=== PATIENT | female | born 1985 | race Caucasian/White ===

== ENCOUNTER 2023-03-12 17:51 | Emergency (ER) | payer BC, SELFPAY ==
[2023-03-12 17:57] VITALS: BP 133/83; PULSE 95; RESP 16; TEMP 36.9; O2SAT 100
--- NOTE | 2023-03-12 18:49 | ED.GENADUL_ITS ---
Discharge Plan Disposition Patient Disposition: Home Condition: Improving Discharge Details Chief Complaint: AnimalBite Clinical Impression: Exposure to bat without known bite Primary Care Provider: None,None ED Provider: Herberth Townsend Discharge Instructions Instructions: Rabies Vaccine (By injection), Rabies Immune Globulin (By injection), Rabies (ED) Additional Instructions: Please return to the emergency department for repeat vaccinations, see vaccination schedule sheet on discharge paperwork. Please return to the emergency department for any worsening Medical Decision Making 37-year-old female presents several days after waking up with a bat in her bedroom. Her partner was able to remove the bat from the room. No apparent bites or scratches. Afebrile nontoxic no acute distress. However given possible exposure to bat patient requires rabies postexposure prophylaxis which includes serial vaccinations as well as a one-time dose of immunoglobulin. Patient amenable to treatment. Given home care instructions and return precautions HPI General Date/Time Provider Initiated Documentation: 03/12/23 18:00 . HPI Narrative: 37-year-old female presents after awaking several days ago with a bat in her bedroom. Does not have any discrete bites or scratches. Her partner removed the bat from the room. General Stated Complaint: AnimalBite FRANNIE: 4 Review of Systems Narrative: Review of Systems Constitutional: negative Eyes: negative ENT: negative Cardiovascular: negative Respiratory: negative Gastrointestinal: negative : negative Musculoskeletal: negative Skin: negative Neurologic: negative Psych: negative PFSH All Active Problems (Updated 03/12/23 @ 19:02 by Herberth Townsend MD) Exposure to bat without known bite (Acute) Social History Smoking risk assessment performed?: No Exam Narrative Exam Narrative: Physical Examination General: alert, awake, cooperative, resting comfortably, no acute distress HEENT: normocephalic, atraumatic Neck: supple, trachea midline; full ROM Chest: normal to inspection Respiratory: normal respiratory effort, speaking in full sentences Skin: no lesions, rashes or trauma appreciated Neuro: AAOx3, normal speech, moving all extremities Psych: Appropriate mood and affect Course Vital Signs Vital signs: Vital Signs Temperature 36.9 C 03/12/23 17:57 Pulse 95 H 03/12/23 17:57 Respiratory Rate 16 03/12/23 17:57 Blood Pressure 133/83 03/12/23 17:57 Pulse Oximetry 100 03/12/23 17:57 Temperature 36.9 C 03/12/23 17:57 Temperature Source Skin 03/12/23 17:57 Pulse 95 H 03/12/23 17:57 Respiratory Rate 16 03/12/23 17:57 Blood Pressure 133/83 03/12/23 17:57 Blood Pressure Position Sitting 03/12/23 17:57 Pulse Oximetry 100 03/12/23 17:57 Oxygen Delivery Method Room Air 03/12/23 17:57 Oxygen Flow Rate 0 03/12/23 17:57 Pain Level 0 03/12/23 17:57
--- NOTE | 2023-03-12 19:17 | NUR.NOTE ---
Nursing Note: info sent to [facility] animal [facility]
[2023-03-12] MEDS: Rabies Immune Globulin 300 UNIT/ML VIAL 1632.94 UNIT IM (19:55)
== END 2023-03-12 20:15 | disposition home or self-care (01) ==
PROVIDERS: Emergency Provider Emergency Medicine
DX: Z20.3 Contact with and (suspected) exposure to rabies (principal)
CPT/HCPCS: 90471; 96372; 99284; 90675; 99282

== ENCOUNTER 2023-03-15 19:22 | Emergency (ER) | payer BC, SELFPAY ==
[2023-03-15 19:28] VITALS: BP 150/84; PULSE 76; RESP 17; TEMP 36.7; O2SAT 98
--- NOTE | 2023-03-15 19:34 | ED.GENADUL_ITS ---
Discharge Plan Disposition Patient Disposition: Home Discharge Details Clinical Impression: Exposure to bat without known bite Primary Care Provider: None,None ED Provider: Hunter Campbell Home Meds and New Rx's Prescriptions: Continued norgestimate-ethinyl estradiol [Sprintec (28)] 0.25-35 mg-mcg Tablet 1 tab PO DAILY cetirizine 5 mg Tablet 10 mg PO PRN PRN Discharge Instructions Additional Instructions: You were seen in the emergency department for your rabies prophylaxis. You are due to have your rabies prophylaxis again in 4 days and then in 11 days. We are trying to have your visit scheduled so that you do not need to be seen in the emergency department. A patient care technician instructor should call you for follow-up. As we discussed if you develop any fevers any confusion or any difficulty swallowing please return to the emergency department. Discharge Data Discharge Date/Time-TO BE ENTERED AT DEPARTURE: 03/15/23 20:50 Medical Decision Making This is an overall well-appearing normothermic and not tachycardic 37-year-old female back in the emergency department for the second in her rabies vaccine series given her exposure to a bat approximately 8 days ago without a known bite. She has had no symptoms of fever nor difficulty swallowing nor hypersali vation to suggest acute rabies. I have asked health varnishing unit operator Amalia to have care management reach out to the patient she does not have a PCP and she will require 2 more doses of intramuscular rabies vaccine. She will be due for dose in 4 days, on 03/19, and in 11 days, on 03/26. Ideally this could be coordinated through either nursing visits or PCP visits as the patient does not require repeat ED assessment in the absence of any new or evolving symptoms. Patient offers no other complaints and was discharged. HPI General Date/Time Provider Initiated Documentation: 03/15/23 19:34 . HPI Narrative: This is a previously healthy 37-year-old female who was in the same room as a bat approximately 8 days ago in the emergency department for the second in her series of rabies vaccines. She has had no symptoms of hypersalivation fevers nor difficulty swallowing. She offers no other complaints. She would not be in the emergency department were it not for her need for rabies vaccination. Related Data Home Medications Medication Instructions Recorded Confirmed cetirizine 5 mg tablet 10 mg PO PRN PRN 03/12/23 03/15/23 norgestimate 0.25 mg-ethinyl 1 tab PO DAILY 03/12/23 03/15/23 estradiol 35 mcg tablet (Sprintec (28)) Allergies Allergy/AdvReac Type Severity Reaction Status Date / Time tomato Allergy Unverified 03/15/23 19:40 General Stated Complaint: AnimalBite FRANNIE: 4 PFS All Active Problems (Updated 03/15/23 @ 19:49 by Hunter Campbell MD) Exposure to bat without known bite (Acute) Social History Smoking/Tobacco Use Status: Never Smoking risk assessment performed?: Yes Alcohol Intake: former Substance use type: does not use Do you feel safe at home: Yes Do you feel safe in your relationship?: Yes Exam Narrative Exam Narrative: General: Well-appearing in no acute distress speaking in complete sentences. Head: Normocephalic, atraumatic. Eye: Extraocular eye movements intact. No conjunctival injection. No scleral icterus. Ear, nose, mouth, throat: Grossly normal inspection. Normal voice, handling secretions normally. Neck: Trachea midline. Cardiovascular: Well-perfused distal extremities. Respiratory: Nonlabored respiration. Gastrointestinal: Nondistended abdomen. Musculoskeletal: No edema. Moving all 4 extremities spontaneously. Skin: Normal for age and race, grossly normal temperature and turgor. No acute rash. Neurologic: Alert and appropriate, no apparent acute deficits. Psychiatric: Mood and manner are appropriate. Grooming and personal hygiene are appropriate. Course Vital Signs Vital signs: Vital Signs Temperature 36.7 C 03/15/23 19:28 Pulse 76 03/15/23 19:28 Respiratory Rate 17 03/15/23 19:28 Blood Pressure 150/84 H 03/15/23 19:28 Pulse Oximetry 98 03/15/23 19:28 Temperature 36.7 C 03/15/23 19:28 Temperature Source Oral 03/15/23 19:28 Pulse 76 03/15/23 19:28 Respiratory Rate 17 03/15/23 19:28 Respiratory Effort Normal 03/15/23 19:31 Blood Pressure 150/84 H 03/15/23 19:28 Blood Pressure Position Sitting 03/15/23 19:28 Pulse Oximetry 98 03/15/23 19:28 Oxygen Delivery Method Room Air 03/15/23 19:28 Oxygen Flow Rate 0 03/15/23 19:28 Pain Level 0 03/15/23 19:28
--- NOTE | 2023-03-16 10:22 | NUR.NOTE ---
Nursing Note: Accessed pt chart to get the date for the next 2 vaccinations for rabies so that the form can be faxed to Infusion Room for these to be done.
== END 2023-03-15 20:50 | disposition home or self-care (01) ==
PROVIDERS: Emergency Provider Emergency Medicine
DX: Z20.3 Contact with and (suspected) exposure to rabies (principal)
CPT/HCPCS: 90471; 99284; 90675; 99283

== ENCOUNTER 2023-03-26 01:39 | Outpatient (RCR) | payer BC, SELFPAY | END 2023-04-09 23:59 | disposition home or self-care (01) | LOC: INF 01:39 | PROVIDERS: Visit Provider Student in an Organized Health Care Education/Training Program | DX: Z20.3 Contact with and (suspected) exposure to rabies (principal) | CPT/HCPCS: 90471; 90675 ==

== ENCOUNTER 2025-04-11 02:00 | Outpatient (CLI) | payer BC, SELFPAY ==
--- NOTE | 2025-04-11 | DI.RAD_ITS ---
Exam(s) RF BARIUM SWALLOW EXAM: RF BARIUM SWALLOW CLINICAL HISTORY: DYSPHAGIA, UNSPECIFIED R13.10 TECHNIQUE: 2D and realtime digital imaging was performed. CONTRAST MATERIAL: Thick and thin barium and barium tablet were administered. COMPARISON: No exams were available for comparison FINDINGS: The PA and lateral chest films show normal heart size and clear lung cam. The lateral beauty advisor view of the neck shows calcifications in the soft tissues left submandibular region. Esophagus: The patient swallowed barium without difficulty. Noevidence for mucosal erosions. Nofold thickening. No mass is visible. Nostricture. Motility: There is a normal primary stripping wave. No tertiary contractions were noted. There is no hiatal hernia. Nogastroesophageal reflux was observed during the exam. The visualized portions of the stomach and duodenum appear normal IMPRESSION: Normal barium swallow. Soft tissue calcifications are noted in the left submandibular region. CT could be performed for further evaluation. Unexpected findings RADIATION DOSE DELIVERED: Ka,r=14.3 mGy
[2025-04-11] MEDS: Barium Sulfate 60% W/V 355 ML BTL PO (12:03)
[2025-04-11] MEDS: Barium Sulfate 98% W/W 140 ML BTL PO (12:04)
[2025-04-11] MEDS: Simethicone/Sod Bicarb/Cit Ac, 4 gram PACKET 1 PACKET PO (12:05)
[2025-04-11] MEDS: Barium Sulfate 700 MG TAB PO (12:06)
== END 2025-04-11 02:20 ==
DX: R13.10 Dysphagia, unspecified (principal)
CPT/HCPCS: 74221; J3490

== ENCOUNTER 2025-04-11 04:24 | Outpatient (CLI) | payer BC, SELFPAY ==
[2025-04-11 12:57] LABS: Abs Immature Grans 0.06 10^3/uL (0.0-0.06); HCT 42.2 % (36.0-46.0); HGB 13.8 g/dL (11.2-15.7); Immature Grans % 0.6 %; MCH 28.9 pg (27.0-33.0); MCHC 32.7 % (32.0-36.0); MCV 88 fL (80-95); MPV 9.6 fL (8.0-11.0); Platelet Count 367 10^3/uL (130-400); RBC 4.78 10^6/uL (3.93-5.22); RDW 13.1 % (11.7-14.6); RDW-SD 42.5 fL; WBC 10.58 10^3/uL (4.4-10.8)
[2025-04-11 12:59] LABS: ESR 13 mm/hr (0-20)
[2025-04-11 14:01] LABS: ALT 42 U/L (14-59); AST 25 U/L (15-37); Albumin 3.7 g/dL (3.4-5.0); Alkaline Phosphatase 126 U/L (46-116); Anion Gap 11.0 mmol/L (3-11); BUN 13 mg/dL (7-18); Bilirubin, Total 0.3 mg/dL (0.2-1.0); CO2 26.0 mmol/L (21.0-32.0); Calcium 9.5 mg/dL (8.5-10.1); Chloride 101 mmol/L (98-107); Estimated GFR 97.26 (mL/min/1.73m2); Glucose 104 mg/dL (74-106); Potassium 3.8 mmol/L (3.5-5.1); Sodium 138 mmol/L (136-145); TSH (W/Ref FT4) 1.79 uIU/mL (0.36-3.74); Total Protein 8.0 g/dL (6.4-8.2); Vitamin B12 1024 pg/mL (193-986); Vitamin D 25 Total 47 ng/mL (30-100)
[2025-04-11 14:13] LABS: Glucose Negative (Negative)
[2025-04-11 14:22] LABS: Creatine Kinase 91 U/L (26-192)
[2025-04-11 14:39] LABS: RBC 0-2 HPF (0-2)
[2025-04-11 22:01] LABS: CRP, High Sensitivity >15.00 mg/L (See Note)
== END 2025-04-11 04:25 | disposition home or self-care (01) ==
LOC: LBO 04:24
DX: R53.82 Chronic fatigue, unspecified (principal); R13.10 Dysphagia, unspecified; L70.9 Acne, unspecified; F41.9 Anxiety disorder, unspecified; R63.5 Abnormal weight gain; Z72.820 Sleep deprivation; R22.0 Localized swelling, mass and lump, head; I10 Essential (primary) hypertension
CPT/HCPCS: 36415; 80053; 82306; 82550; 82784; 83516; 85652; 86141; 81003; 81015; 82607; 84443; 85025; 86038; 86225

== ENCOUNTER 2025-07-02 20:05 | Outpatient (CLI) | payer BC, SELFPAY ==
[2025-07-02 16:02] LABS: TSH (W/Ref FT4) 1.54 uIU/mL (0.36-3.74)
== END 2025-07-02 20:06 | disposition home or self-care (01) ==
LOC: LBO 20:05
PROVIDERS: Visit Provider Obstetrics & Gynecology
DX: N92.6 Irregular menstruation, unspecified (principal); N91.2 Amenorrhea, unspecified
CPT/HCPCS: 36415; 84403; 84443